=== PATIENT | male | born 1940 | race Caucasian/White ===

== ENCOUNTER → 2018-02-28 | Outpatient (CLI) | payer MEDICARE, BC ==
[~2018-02-28] MED LIST: ACCURETIC 20-11 EACH; ALLOPURINOL 30300 M2; ASPIRIN EC325 MG PO; ASPIRIN EC81 M1; CALCIUM 500 +1 EAC5; COLCHICINE0.6 M1 PO; COREG6.25 MG PO; COUMADIN 5 MG TA5 M1; FISH OIL 1,001000 M1 PO; FOSAMAX 70 MG T70 M1; LASIX 40 MG TAB40 M1 PO; LIPITOR40 MG PO; LISINOPRIL10 MG PO; METFORMIN HCL500 MG PO; MULTIVITAMINS1 EAC7 PO; NORCO 5-325 TA1 EACH PO; ODORLESS GARLI500 MG; PEPCID20 MG PO; PERCOCET PO; POTASSIUM20 PO; POTASSIUM99 M1; PRADAXA150 MG PO; PRADAXA75 MG PO; SAW PALMETTO 1160 MG PO; SAW PALMETTO C1 EACH PO; SAW PALMETTO160 M1; SORINE 80 MG TA80 M1 PO; SOTALOL80 MG PO; TOPROL XL50 MG; VITCB500GO
[2018-02-28 12:53] LABS: ABSOLUTE EOSINOPHILS 0.2 thou/uL (0.0-0.7); ABSOLUTE LYMPHOCYTES 1.4 thou/uL (0.8-5.3); ABSOLUTE NEUTROPHILS 4.8 thou/uL (1.6-8.1); BASOPHILS 0.6 %; EOSINOPHILS 2.5 %; HEMOGLOBIN 18.5 gm/dL (14.0-18.0); LYMPHOCYTES 19.2 %; MCH 32.1 pg (26.0-34.0); MCHC 33.6 g/dL (28.0-37.0); MCV 95.6 fL (80.0-100.0); MONOCYTES 13.4 %; MPV 10.8 fl. (7.2-11.1); NUCLEATED RBCS 0 /100WBC; PLATELET COUNT* 125 thou/uL (150-400); POLYS 64.3 %; RBC 5.75 mil/uL (4.50-6.00); RDW-CV 14.7 % (10.5-14.5); WBC 7.4 thou/uL (4.0-11.0)
[2018-02-28 13:09] LABS: ALBUMIN 3.1 g/dL (3.4-5.0); CALCIUM 8.5 mg/dL (8.5-10.1); CREATININE 1.1 mg/dL (0.6-1.3); POTASSIUM 4.5 mmol/L (3.5-5.1); TOTAL BILIRUBIN 1.1 mg/dL (<0.1-1.0); TOTAL PROTEIN 6.9 g/dL (6.4-8.2)
== END ==
LOC: M.RAD 12:18
PROVIDERS: Family Medicine
DX: I51.7 Cardiomegaly (principal); R09.02 Hypoxemia; Z95.0 Presence of cardiac pacemaker

== ENCOUNTER → 2018-10-10 | Outpatient (CLI) | payer MEDICARE, BC ==
[2018-10-10] VITALS (11 sets, daily range): BP systolic 146–184; BP diastolic 87–120
--- NOTE | 2018-10-10 16:56 | TEE ---
[place] [address] TRANSESOPHAGEAL ECHOCARDIOGRAM Name: EUGENE PERRY Room: [facility]#: [id number] Admission: 10/10/18 Attend Phys: Selwyn Brooks, Discharge: Date of : 38 Date of Service: 10/10/18 1656 Report #: [id number] THIS REPORT FOR: //name// APPROVED REPORT Study performed: 10/10/2018 14:36:48 EXAM: Transesophageal Echocardiogram Patient Location: Out-Patient Status: routine BSA: 2.26 HR: 77 bpm BP: 173/100 mmHg Rhythm: NSR Other Information Study Quality: Good Indications Pre-ablation Echo Enhancing Agent Indication: Rule out Shunt Agent(s) / Amount(s) Used: Agitated Saline 10 cc Procedure After obtaining informed consent, patient underwent transesophageal echo in the [employer]. Type of Sedation : Conscious Sedation Sedation was administered by Tatyana Mayer. Sedation start time: 2 Case end Time: 1457 Sedation was achieved intravenously with: Versed (5) Fentanyl (125) Transesophageal probe was inserted and advanced into esophagus without difficulty by Selwyn Brooks MD, FACC. Echo enhancement indication: R/O Septal defect. Echo enhancement agent administered: Agitated Saline The DELMA was performed without complications. Throughout the procedure, the blood pressure, pulse oximetry, cardiac rhythm, and rate were monitored. The patient tolerated the procedure without adverse effects. Recovery from conscious sedation was uneventful and vital signs were stable. Left Ventricle [address] [address] TRANSESOPHAGEAL ECHOCARDIOGRAM Name: EUGENE PERRY Room: [facility]#: [id number] Admission: 10/10/18 Attend Phys: Selwyn Brooks, Discharge: Date of : 38 Date of Service: 10/10/18 1656 Report #: [id number] The left ventricle is normal size. There is normal LV segmental wall motion. There is normal left ventricular wall thickness. Left ventricular systolic function is normal. LVEF is 50-55%. Right Ventricle The right ventricle is normal size. The right ventricular systolic function is normal. Atria No thrombus is visualized in the left atrium or appendage. PFO is noted. The right atrium size is normal. Aortic Valve The aortic valve is normal in structure. No aortic regurgitation is present. There is no aortic valvular stenosis. Mitral Valve The mitral valve is normal in structure. Mild mitral regurgitation. No evidence of mitral valve stenosis. Tricuspid Valve The tricuspid valve is normal in structure. Trace tricuspid regurgitation. Pulmonic Valve The pulmonary valve is normal in structure. There is no pulmonic valvular regurgitation. Great Vessels The aortic root is normal in size. Pericardium There is no pericardial effusion. <Conclusion> The left ventricle is normal size. There is normal left ventricular wall thickness. Left ventricular systolic function is normal. LVEF is 50-55%. PFO is noted. No thrombus is visualized in the left atrium or appendage. Mild mitral regurgitation. <ELECTRONICALLY SIGNED> By: Selwyn Brooks MD, FACC 10/10/18 1656 165 165 Selwyn Brooks MD, FACC /INF
== END | disposition home or self-care (01) ==
LOC: M.CL 13:43
DX: I34.0 Nonrheumatic mitral (valve) insufficiency (principal); N28.9 Disorder of kidney and ureter, unspecified; Z98.890 Other specified postprocedural states; Z87.19 Personal history of other diseases of the digestive system; Z91.041 Radiographic dye allergy status; Z79.899 Other long term (current) drug therapy; Z79.01 Long term (current) use of anticoagulants

== ENCOUNTER → 2018-10-17 | Outpatient (CLI) | payer MEDICARE, BC ==
[2018-10-17 09:51] LABS: HEMATOCRIT 56.5 % (42.0-52.0); HEMOGLOBIN 18.8 gm/dL (14.0-18.0); MCH 31.7 pg (26.0-34.0); MCHC 33.3 g/dL (28.0-37.0); MCV 95.3 fL (80.0-100.0); MPV 12.2 fl. (7.2-11.1); RBC 5.93 mil/uL (4.50-6.00); RDW-CV 14.6 % (10.5-14.5); WBC 10.8 thou/uL (4.0-11.0)
[2018-10-17 10:06] LABS: ALBUMIN 3.1 g/dL (3.4-5.0); CALCIUM 8.5 mg/dL (8.5-10.1); CREATININE 1.2 mg/dL (0.6-1.3); POTASSIUM 4.6 mmol/L (3.5-5.1); TOTAL BILIRUBIN 0.6 mg/dL (<0.1-1.0); TOTAL PROTEIN 7.1 g/dL (6.4-8.2)
== END ==
LOC: M.LAB
PROVIDERS: Internal Medicine Cardiovascular Disease
DX: I11.9 Hypertensive heart disease without heart failure (principal); I25.10 Atherosclerotic heart disease of native coronary artery without angina pectoris; I48.91 Unspecified atrial fibrillation; I49.9 Cardiac arrhythmia, unspecified; Z96.611 Presence of right artificial shoulder joint; Z96.612 Presence of left artificial shoulder joint

== ENCOUNTER → 2019-06-17 | Outpatient (CLI) | payer MEDICARE, BC ==
--- NOTE | 2019-06-17 13:34 | 2DMMODE ---
[place] [address] 2 D/M-MODE ECHOCARDIOGRAM Name: EUGENE PERRY Room: [facility]#: [id number] Admission: 06/17/19 Attend Phys: Selwyn Brooks, Discharge: Date of : 38 Date of Service: 06/17/19 1333 Report #: [id number] THIS REPORT FOR: cc: Tenisha Banuelos MD, Katrina MD Blick, David R. MD [facility] ~ THIS REPORT FOR: //name// APPROVED REPORT Study performed: 06/17/2019 11:10:50 EXAM: Comprehensive 2D, Doppler, and color-flow Echocardiogram Patient Location: Out-Patient BSA: 2.28 HR: 51 bpm BP: 146/90 mmHg Other Information Study Quality: Good Indications Dyspnea Cardiomyopathy 2D Dimensions IVSd: 13.31 (7-11mm) LVOT Diam: 20.10 (18-24mm) LVDd: 53.08 mm PWd: 10.73 (7-11mm) Ascending Ao: 34.15 (22-36mm) LVDs: 35.30 (25-40mm) Aortic Root: 31.59 mm Volumes Left Atrial Volume (Systole) LA ESV Index: 37.00 mL/m2 Aortic Valve AoV Peak Marlo.: 1.71 m/s AO Peak Gr.: 11.71 mmHg LVOT Max P.76 mmHg AO Mean Gr.: 7.29 mmHg LVOT Mean P.88 mmHg LVOT Max V: 0.66 m/s AO V2 VTI: 35.22 cm LVOT Mean V: 0.43 m/s GISELA (VTI): 1.16 cm2 LVOT V1 VTI: 12.86 [place] [id number] 2 D/M-MODE ECHOCARDIOGRAM Name: EUGENE PERRY Room: [facility]#: [id number] Admission: 06/17/19 Attend Phys: Selwyn Brooks, Discharge: Date of : 38 Date of Service: 06/17/19 1333 Report #: [id number] Mitral Valve E/A Ratio: 1.99 MV Decel. Time: 223.77 ms MV E Max Marlo.: 0.55 m/s MV PHT: 64.89 ms MVA (PHT): 3.39 cm2 TDI E/Lateral E': 6.88 E/Medial E': 13.75 Medial E' Marlo.: 0.04 m/s Lateral E' Marlo.: 0.08 m/s Pulmonary Valve PV Peak Marlo.: 1.05 m/s PV Peak Gr.: 4.42 mmHg Tricuspid Valve RAP Estimate: 5.00 mmHg TR Peak Gr.: 25.85 mmHg RVSP: 30.85 mmHg PA Pressure: 30.85 mmHg Left Ventricle The left ventricle is normal size. paradoxical septal motion consistent with a paced rhythm There is normal left ventricular wall thickness. Left ventricular systolic function is normal. The left ventricular ejection fraction is within the normal range. LVEF is 50-55%. This study is not technically sufficient to allow evaluation of the LV diastolic function due to atrial fibrillation. Right Ventricle The right ventricle is normal size. The right ventricular systolic function is normal. Pacemaker lead is present in the right ventricle. Atria Left atrium is mildly dilated. Pacemaker lead is present in the right atrium. Aortic Valve Aortic valve is mildly calcified. Trace aortic regurgitation. There is no aortic valvular stenosis. Mitral Valve The mitral valve is normal in structure. There is trace mitral valve regurgitation noted. No evidence of mitral valve stenosis[place] [id number] 2 D/M-MODE ECHOCARDIOGRAM Name: EUGENE PERRY Room: [facility]#: [id number] Admission: 06/17/19 Attend Phys: Selwyn Brooks, Discharge: Date of : 38 Date of Service: 06/17/19 1333 Report #: [id number] The tricuspid valve is normal in structure. trace tricuspid regurgitation. Pulmonic Valve The pulmonary valve is normal in structure. There is no pulmonic valvular regurgitation. Great Vessels The aortic root is normal in size. IVC is normal in size and collapses >50% with inspiration. Pericardium There is no pericardial effusion. <Conclusion> LVEF is 50-55%. Left atrium is mildly dilated. Aortic valve is mildly calcified. <ELECTRONICALLY SIGNED> By: Matt Shi MD, [facility] 06/17/19 1333 1333 1333 Matt Shi MD, FACC /INF
== END ==
LOC: M.CRD 11:00
DX: I35.8 Other nonrheumatic aortic valve disorders (principal); I42.8 Other cardiomyopathies; Z91.041 Radiographic dye allergy status

== ENCOUNTER → 2019-06-27 | Outpatient (CLI) | payer MEDICARE, BC | LOC: M.RAD 11:57 | DX: I51.7 Cardiomegaly (principal) ==

== ENCOUNTER → 2019-06-28 | Outpatient (CLI) | payer MEDICARE, BC ==
[2019-06-28 10:46] LABS: CALCIUM 8.3 mg/dL (8.5-10.1); CREATININE 0.9 mg/dL (0.6-1.3); POTASSIUM 4.9 mmol/L (3.5-5.1)
== END ==
LOC: M.LAB 09:44
PROVIDERS: Family Medicine
DX: E87.5 Hyperkalemia (principal)

== ENCOUNTER → 2019-07-21 | Outpatient (CLI) | payer MEDICARE, BC | LOC: M.RAD 15:39 | DX: J18.9 Pneumonia, unspecified organism (principal); J98.4 Other disorders of lung ==

== ENCOUNTER 2019-11-01 16:46 | Inpatient (IN) | payer MEDICARE, BC ==
[~2019-11-01] VITALS: Ht 177.8 cm; Wt 114.4 kg
[2019-11-01 17:00] VITALS: BP 164/96
[2019-11-01] MEDS ORDERED: KLOR-CON 10 ER10 MEQ PO (17:08)
[2019-11-01 17:10] LABS: ABSOLUTE BASOPHILS 0.1 thou/uL (0.0-0.2); ABSOLUTE EOSINOPHILS 0.2 thou/uL (0.0-0.7); ABSOLUTE LYMPHOCYTES 1.3 thou/uL (0.8-5.3); ABSOLUTE NEUTROPHILS 6.5 thou/uL (1.6-8.1); BASOPHILS 1.1 %; EOSINOPHILS 2.6 %; HEMATOCRIT 46.7 % (42.0-52.0); HEMOGLOBIN 15.8 gm/dL (14.0-18.0); LYMPHOCYTES 14.2 %; MCH 32.2 pg (26.0-34.0); MCHC 33.8 g/dL (28.0-37.0); MCV 95.5 fL (80.0-100.0); MONOCYTES 10.7 %; MPV 11.7 fl. (7.2-11.1); NUCLEATED RBCS 0 /100WBC; PLATELET COUNT* 126 thou/uL (150-400); POLYS 71.4 %; RBC 4.89 mil/uL (4.50-6.00); RDW-CV 15.1 % (10.5-14.5); WBC 9.2 thou/uL (4.0-11.0)
[2019-11-01 17:21] LABS: CALCIUM 8.8 mg/dL (8.5-10.1); CREATININE 1.1 mg/dL (0.6-1.3); POTASSIUM 4.7 mmol/L (3.5-5.1)
[2019-11-01 17:26] LABS: ALBUMIN 3.2 g/dL (3.4-5.0); TOTAL BILIRUBIN 0.9 mg/dL (<0.1-1.0); TOTAL PROTEIN 7.1 g/dL (6.4-8.2)
[2019-11-01 17:41] LABS: APTT 40.9 Seconds (25.0-31.3); INR 1.3
[2019-11-01 19:35] VITALS: BP 164/92
[2019-11-01 20:00] VITALS: BP 157/93
[2019-11-02] VITALS: BP 145/81
--- NOTE | 2019-11-02 02:46 | NUR ---
PT ALERT OREINTED. SLIGHT SLUR IN SPEECH. SLIGHT R SIDED FACIAL DROOP. PT HAS PACEMAKER. DR DIAZ CALLED TO CHECK ON PT. DR WANTED MRI BUT PT HAS PACEMAKER. ALSO DR REQUESTED NURSE TO CHECK FOR SWALLOW AND GIVE MEDS. [facility] BR[facility]. WILL NEED TO LABLE WITH PHARMACY IN THE AM. TELEMETRY SHOWS AV PACED. NIHSS 2. STATES SPEECH IS IMPROVING BUT SHE STILL NOTES SOME SLURRING. AMBULATE TO BR WITH ASSIST OF ONE. VOIDS IN BR. IVF NS AT 100MLS/HR. WILL CONTINUE TO [facility].
[2019-11-02 04:00] VITALS: BP 140/72
[2019-11-02 06:15] LABS: CHOLESTEROL 94 mg/dL (<200); HDL CHOLESTEROL 35 mg/dL (>40); LDL CHOLESTEROL 45 mg/dL (<100); TC:HDL 2.7 Ratio (Not establshd); TRIGLYCERIDE 71 mg/dL (<150); VLDL 14 mg/dL (<40)
--- NOTE | 2019-11-02 06:16 | NUR ---
DR DIAZ CALLED. HE WILL SEE PT AROUND NOON TODAY. BED REST FOR NOW. HOLD CARDIAC MEDS AND CHECK WITH PRIMARY RE SOTOLOL.
[2019-11-02 06:17] LABS: SERUM ASSESSMENT Clear
[2019-11-02 09:07] VITALS: BP 136/79
[2019-11-02 12:40] VITALS: BP 128/78
--- NOTE | 2019-11-02 12:44 | NUR ---
PT ALERT AND ORIENTED IN BED SBA WITH AMBULATION STILL LEANS TO LEFT, LEFT SIDED FACIAL DROOP NOTED MINIMALLY PACED ON THE MONITOR INFO ON PACEMAKER PUT IN CHART FROM DENIES ANY PAIN EATS WITHOUT DIFFICULTY HEART HEALTHY DIET PUT IN FOR LUNCH CALL LIGHT IN REACH
--- NOTE | 2019-11-02 13:28 | EKG ---
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
--- NOTE | 2019-11-02 13:45 | CON ---
[address] [address] CONSULTATION Name: EUGENE PERRY Room: [address] IN .R.#: [id number] Admission: 11/01/19 Attend Phys: Rasta Matthews MD Discharge: Date of : 38 Report #: [id number] THIS REPORT FOR: //name// cc: Tenisha Banuelos MD, Katrina MD ~ THIS REPORT FOR: //name// CC: Rasta Brooks MD DATE OF SERVICE: 11/02/2019 CARDIOLOGY CONSULTATION HISTORY OF PRESENT ILLNESS: The patient is a 78-year-old white male who I was asked to see in the hospital today because of his history of atrial fibrillation. The patient has an extensive and complicated past medical history. He has had paroxysmal atrial fibrillation since 2011. He has been cardioverted 3 times. He has been followed by my partner, Dr. Brooks. Because of symptomatic bradycardia, he actually had a pacemaker inserted in 2012. He has been chronically anticoagulated with Pradaxa. He has been on sotalol. Because of recurrent atrial fibrillation, he actually underwent radiofrequency ablation a year ago at [facility] by Dr. Jaramillo. Recently, he denied any palpitations or chest pain. He does get short of breath and exerts himself, has occasional edema, for which he takes Lasix. He apparently had a heart catheterization in the past showed no significant coronary artery disease. The patient was doing well until yesterday, he had some slurred speech, poor balance and visual changes. He was confused. He was brought to the Emergency Room last night, felt to have had a TIA. Cardiology consultation was requested. PAST MEDICAL HISTORY: He has had previous elbow surgery, splenectomy, mandible fracture, left shoulder replacement. MEDICATIONS: On admission include lisinopril, Lasix, colchicine, Pepcid, Lipitor, Pradaxa, sotalol, and carvedilol. ALLERGIES: HE HAS A PREVIOUS REACTION TO IV CONTRAST. FAMILY HISTORY: Negative for heart disease. SOCIAL HISTORY: He is . He and his live here in [place]. No tobacco use. Rarely drinks alcohol. REVIEW OF SYSTEMS: He has had no history of previous stroke, asthma, [place] [address] CONSULTATION Name: EUGENE PERRY Room: [address]#: [id number] Admission: 11/01/19 Attend Phys: Rasta Matthews MD Discharge: Date of : 38 Report #: [id number] history of hiatal hernia. No liver disease, no kidney disease, no cancer, no chronic skin condition. PHYSICAL EXAMINATION: GENERAL: Revealed an elderly male, lying in bed, appeared in no distress. VITAL SIGNS: He had a blood pressure of 130/80, pulse 60. He is afebrile. HEENT: He is anicteric. Conjunctivae pink. Mucous membranes moist. NECK: Veins nondistended. No carotid bruits. CHEST: Clear to auscultation. CARDIOVASCULAR: Regular rate and rhythm. ABDOMEN: Soft. EXTREMITIES: Had no edema. Dorsalis pedis pulse cannot be palpated. SKIN: Cool and dry. NEUROLOGIC: Nonfocal. DIAGNOSTIC DATA: ECG shows an AV sequentially paced rhythm. His workup, he had an echocardiogram done in 06/2019 that showed an ejection fraction 55%, left atrial enlargement, mild aortic sclerosis. Workup last night, he had a CT scan of the head performed without contrast that showed atrophy, small vessel disease. Chest x-ray showed normal heart size, clear lung winslow. LABORATORY WORK: Sodium 143, creatinine 1.1. Cholesterol 94, triglycerides 71, HDL 35, LDL 45. His white blood cell count was 9.2, hemoglobin 15.8. IMPRESSION AND RECOMMENDATIONS: 1. Transient ischemic attack. Reason unclear. The patient has been on Pradaxa. I would ask Neurology if the patient should be started on aspirin or dipyridamole. 2. History of atrial fibrillation. The patient is on sotalol. 3. Sick sinus syndrome. The patient ventricular paced. 4. Hypertension. The patient is on a beta zakiya and ANDRA inhibitor. 5. PREVIOUS REACTION TO CONTRAST. <ELECTRONICALLY SIGNED> By: Matt Shi MD, FACC 11/02/19 1345 1306 1333Dphil Shi MD, FACC /nt
[2019-11-02 16:30] VITALS: BP 132/78
--- NOTE | 2019-11-02 18:24 | NUR ---
PT STILL LEANS TO THE LEFT WHEN AMBULATING WITH SOME SHUFFLING, STANDBY ASSIST
[2019-11-02 20:00] VITALS: BP 128/82
[2019-11-03 00:11] VITALS: BP 118/58
--- NOTE | 2019-11-03 02:13 | NUR ---
PT ALERT ORIENTED. NIHSS 2. TELEMTRY SHOWS A-PACED AV-PACED WITH AFIB UNDERLYING. UP WITH ASSIST OF ONE. NO PAIN. WILL CONTINUE TO [facility].
[2019-11-03 04:00] VITALS: BP 154/79
[2019-11-03 08:00] VITALS: BP 154/81
--- NOTE | 2019-11-03 10:22 | NUR ---
PT UP WITH MIN ASSIST LEANS TO LEFT STILL AND BECOMES UNSTEADY MINIMAL WEAKNESS TO LEFT HEALTH PROFESSIONAL PACEMAKER NOT COMPATIBLE WITH MRI SO POSSIBLE CTA TODAY PROTOCOL FOR IODINE ALLERGY PT STATES IT WAS ONE TIME HGB A1C AT 6.0 CALL LIGHT IN REACH
[2019-11-03 11:30] VITALS: BP 156/86
[2019-11-03] MEDS ORDERED: ASA81BEC PO (13:22)
--- NOTE | 2019-11-03 13:42 | 2DMMODE ---
[place] [address] 2 D/M-MODE ECHOCARDIOGRAM Name: EUGENE PERRY Room: [address] IN .R.#: [id number] Admission: 11/01/19 Attend Phys: Rasta Matthews, Discharge: Date of : 38 Date of Service: 11/03/19 1341 Report #: [id number] THIS REPORT FOR: cc: Tenisha Banuelos MD, Katrina MD Holkins,Fabien Connors MD [facility] ~ APPROVED REPORT Study performed: 11/03/2019 10:02:41 EXAM: Comprehensive 2D, Doppler, and color-flow Echocardiogram Patient Location: In-Patient BSA: 2.24 HR: 64 bpm BP: 154/81 mmHg Other Information Study Quality: Fair Indications CVA/TIA Echo Enhancing Agent Indication: Rule out Shunt Agent(s) / Amount(s) Used: Agitated Saline cc 2D Dimensions IVSd: 15.00 (7-11mm) LVOT Diam: 22.37 (18-24mm) LVDd: 57.36 mm PWd: 9.87 (7-11mm) Ascending Ao: 31.66 (22-36mm) LVDs: 37.62 (25-40mm) Aortic Root: 26.44 mm Volumes Left Atrial Volume (Systole) LA ESV Index: 41.80 mL/m2 Aortic Valve AoV Peak Marlo.: 1.10 m/s AO Peak Gr.: 4.84 mmHg LVOT Max P.31 mmHg AO Mean Gr.: 2.86 mmHg LVOT Mean P.79 mmHg LVOT Max V: 0.91 m/s AO V2 VTI: 19.79 cm LVOT Mean V: 0.63 m/[place] [address] 2 D/M-MODE ECHOCARDIOGRAM Name: EUGENE PERRY Room: [address] IN ..#: [id number] Admission: 11/01/19 Attend Phys: Rasta Matthews, Discharge: Date of : 38 Date of Service: 11/03/19 1341 Report #: [id number] GISELA (VTI): 4.06 cm2 LVOT V1 VTI: 20.46 cm Mitral Valve E/A Ratio: 1.95 MV Decel. Time: 158.47 ms MV E Max Marlo.: 0.62 m/s MV PHT: 45.96 ms MVA (PHT): 4.79 cm2 TDI E/Lateral E': 5.64 E/Medial E': 6.89 Medial E' Marlo.: 0.09 m/s Lateral E' Marlo.: 0.11 m/s Pulmonary Valve PV Peak Marlo.: 0.96 m/s PV Peak Gr.: 3.66 mmHg Tricuspid Valve RAP Estimate: 5.00 mmHg TR Peak Gr.: 33.28 mmHg RVSP: 38.28 mmHg Left Ventricle The left ventricle is normal size. There is normal LV segmental wall motion. There is normal left ventricular wall thickness. Left ventricular systolic function is mildly decreased. LVEF is 45%. Right Ventricle The right ventricle is normal size. The right ventricular systolic function is normal. Pacemaker lead is present in the right ventricle. Atria Left atrium is mildly dilated. Injection of bubbles documented no interatrial shunt. The right atrium size is normal. Aortic Valve Mild aortic valve sclerosis. No aortic regurgitation is present. There is no aortic valvular stenosis. Mitral Valve The mitral valve is normal in structure. Trace mitral regurgitation. No evidence of mitral valve stenosis. Tricuspid Valve The tricuspid valve is normal in structure. [place] [address] 2 D/M-MODE ECHOCARDIOGRAM Name: EUGENE PERRY Room: [address]#: [id number] Admission: 11/01/19 Attend Phys: Rasta Matthews, Discharge: Date of : 38 Date of Service: 11/03/19 1341 Report #: [id number] Pulmonic Valve The pulmonary valve is normal in structure. There is no pulmonic valvular regurgitation. Great Vessels The aortic root is normal in size. IVC is normal in size and collapses >50% with inspiration. Pericardium There is no pericardial effusion. <Conclusion> The left ventricle is normal size. There is normal left ventricular wall thickness. Left ventricular systolic function is mildly decreased. LVEF is 45%. The right ventricle is normal size. Left atrium is mildly dilated. Mild aortic valve sclerosis. No aortic regurgitation is present. There is no aortic valvular stenosis. The mitral valve is normal in structure. The tricuspid valve is normal in structure. IVC is normal in size and collapses >50% with inspiration. There is no pericardial effusion. There is normal LV segmental wall motion. Pacemaker lead is present in the right ventricle. Injection of bubbles documented no interatrial shunt. <ELECTRONICALLY SIGNED> By: Fabien Bejarano MD, FACC 11/03/19 1341 1341 1341 Fabien Bejarano MD, FACC /INF
[2019-11-03 13:56] VITALS: BP 154/81
--- NOTE | 2019-11-03 14:00 | NUR ---
PT.TO DISCHARGE TODAY,WITH HOME HEALTH. SPOKE WITH HIM IN ROOM. HE SAID HE LIVES WITH HIS . NO USE OF DME. HE WAS AGREEABLE TO HOME HEALTH. HE WANTED CM TO CALL HIS FOR HOME HEALTH AGENCY DISCUSSION. CM CALLED ,[facility]. SHE CHOSE [facility], THEY USED THEM BEFORE WHEN PT.HAD JT REPLACEMENTS. FAXED REFERRAL INFORMATION AND DISCHARGE SUMMARY TO [facility] [phone], THEY WILL CALL PT.TOMORROW TO SET UP APPTS. INFORMATION PUT IN DISCHARGE INSTRUCTIONS.
--- NOTE | 2019-11-03 15:28 | NUR ---
Cardiac Rehab Stroke Education completed with receptive patient using the [facility] Patient Education Folder. Education included signs and symptoms of stroke, when to call 911, personal risk factor reduction, BEFAST. States understanding of education.
[2019-11-03] MEDS ORDERED: COREG6.25 MG PO (16:36)
[2019-11-03] MEDS ORDERED: LISINOPRIL10 MG PO (16:36)
[2019-11-03] MEDS ORDERED: PLAVIX 75 MG TA75 MG PO (16:36)
--- NOTE | 2019-11-05 12:39 | CON ---
[address] [address] CONSULTATION Name: EUGENE PERRY Room: [address] IN .R.#: [id number] Admission: 11/01/19 Attend Phys: Rasta Matthews MD Discharge: 11/03/19 Date of : 38 Report #: [id number] THIS REPORT FOR: //name// cc: Tenisha Banuelos MD, Katrina MD THIS REPORT FOR: //name// CC: Rasta Samano Cecilia DATE OF SERVICE: 11/02/2019 HISTORY OF PRESENT ILLNESS: This is a 78-year-old male patient on whom a routine Neurology consultation was requested to evaluate the patient for possibility of CVA. I talked to the nurses and I talked to Dr. Matthews I reviewed the records. The patient himself is able to provide reasonably good history. He indicated that he worked for about 4 hours in heat. He was moaning during that time, but he indicated such heat exposure is not unusual for him. He does it all the time. Then, he drove and did not feel good while driving. He was leaning towards the left side. There was a facial drop noticed also by his sons. He was going to drive to his place, which was about 60 miles away, but stopped by his son's house because he was not feeling good. He was brought to Emergency Room by the family and those notes were reviewed. It looks like in the Emergency Room, they did a CT scan of the head, which showed no acute changes. The patient has significantly improved since that time. does not think that his speech is back to completely normal, but she says he does improve more than 80%. To me, it looks like he is talking fine. He had some nonspecific visual symptoms. Those have also resolved. REVIEW OF SYSTEMS: Indicate that the patient had multiple musculoskeletal problems in the past. He had trouble with the shoulders. He has a pacemaker, which according to the family was put in 2012. It is not sure whether it is MRI compatible or not. He also had a heart ablation as I understand. He does have a history of prior vertigo. His visual symptoms have resolved and he does not have any new ENT, cardiac, respiratory, GI, , musculoskeletal, constitutional, hematological, psychiatric, throat, allergic symptom associated with this symptom. He has a pretty profound redness of his legs and multiple other spots in the body. He says it is sunburn and he gets pretty off. PAST MEDICAL HISTORY: Negative for stroke. FAMILY HISTORY: Negative for any early age stroke. SOCIAL HISTORY: The patient is and his was here and I talked to the patient's in detail also and [place] [address] CONSULTATION Name: EUGENE PERRY Room: [address]#: [id number] Admission: 11/01/19 Attend Phys: Rasta Matthews MD Discharge: 11/03/19 Date of : 38 Report #: [id number] apparently does not smoke. PHYSICAL EXAMINATION: Indicate he is alert, responsive, able to follow simple and complex command. He knows what month it is, what day it is, who the president is. He does not appear to have any expressive aphasia. His cranial nerve examination 2-12 does not appear to be showing any definite abnormality. To me, I do not see much facial problem. The best I can tell, although I agree that there is some facial asymmetry, but it is subtle if it is there. He does not have any hemianopsia or nystagmus. His mobility especially in the shoulder is limited, but he says that is his baseline. His position sense is unremarkable. His tone and reflexes are also unremarkable. He has a pacemaker. He has no respiratory difficulty. He is a very well-developed individual, who does not have any dysmorphic features of eyes, ears and face. His pulses are somewhat difficult to feel. He has no thyroid mass, no carotid bruit. Hearing and vision looks adequate. His blood pressure now is running about 136/79, respirations 16, pulse is 62 and temperature is 96.5. LABORATORY DATA: His WBC count is 9.2 and his platelet count is low at 126. His PT and PTT is somewhat on the higher side for some reason, his fibrinogen level is high. IMPRESSION AND PLAN: The patient's clinical presentation is consistent with possible CVA. The differential does include that it is possible that the patient had a heat exposure causing heat stroke, but he is accustomed to this heat and that is considered unlikely. At this time, we will assume that he probably had a stroke. His workup is difficult. We could not do MRI in this patient because we do not know whether the pacemaker is compatible or not and even if it is, then we need to set it off, which takes a few days to set up. MRI of the brain, MRA of the head and neck is the thing to do in this patient. The other option is getting a CT angiogram of the head done in this patient. 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 He received dye about 40 years ago. He broke into a severe rash and then passed out. That makes it difficult because second time the allergic reaction is more severe. I believe we can probably do the CT angio if we pretreat him, but the problem with that it is not 100% and it can cause multiple other issues. I discussed all of it with the patient and I discussed his options and these are the option in this patient. This patient is not a TPA candidate and he never was because he is on anticoagulation with Pradaxa. It is difficult to tell about any thrombus in the carotid or intracranial circulation. This is because further workup cannot be done and his NIH score is too low at the moment because to me, he basically has very mild symptoms. Therefore, it is unlikely that he will be any thrombectomy candidate even if the thrombus is found, but that was required multiple testing, which has potential complication. All other option is to just watch and see how [place] [address] CONSULTATION Name: EUGENE PERRY Room: [address] IN [facility].#: [id number] Admission: 11/01/19 Attend Phys: Rasta Matthews MD Discharge: 11/03/19 Date of : 38 Report #: [id number] aspirin and anticoagulation. Best option patient and the family wants to follow. I will suggest a Cardiology consult. We will ask them if the pacemaker is compatible with MRI. I will also like to lower his antihypertensive in acute stage if that is okay with Cardiology. I will keep getting his fluids because that will keep him hydrated and increase his blood pressure to some extent. This patient may need a DELMA also. I will favor that especially to look for any embolization from aorta. The first thing is that the patient is stable at the moment and his deficit is mild and the best will be tried to see if an MRI can be done and we will ask Cardiology evaluation and he also need other cardiology workup as summarized above. We will keep him hydrated and keep him on combination of anticoagulation and aspirin. His speech is pretty much back to normal and I suggested that they do a bedside swallow and if he passes that he can eat from Neurology perspective because that is what he wants to do. There is no ideal option in this patient. Every option has pros and cons because of the complicated situation summarized above. I have discussed that all of that in detail with the patient and the family and they want to wait until the Cardiology evaluation and they like an MRI and MRA if possible at all rather than doing CT angio. I will get a carotid Doppler done in this patient. Thank you very much for this referral. <ELECTRONICALLY SIGNED> By: Wesly Hill MD 11/05/19 1239 1214 1317Wesly Hill MD /nt
== END 2019-11-03 17:05 | disposition home health service (06) | DRG 65 ==
LOC: M.ERS 16:46 → M.TBA-ER 18:08 → M.2W 18:08
PROVIDERS: Family Medicine; ADMIT Internal Medicine; ATTEND Internal Medicine
DX: I63.89 Other cerebral infarction (principal); I50.22 Chronic systolic (congestive) heart failure; I42.9 Cardiomyopathy, unspecified; G81.94 Hemiplegia, unspecified affecting left nondominant side; Z96.652 Presence of left artificial knee joint; Z96.612 Presence of left artificial shoulder joint; M10.9 Gout, unspecified; I48.0 Paroxysmal atrial fibrillation; I49.5 Sick sinus syndrome; M19.90 Unspecified osteoarthritis, unspecified site; I11.0 Hypertensive heart disease with heart failure; Z95.0 Presence of cardiac pacemaker; Z87.01 Personal history of pneumonia (recurrent); Z91.048 Other nonmedicinal substance allergy status; Z79.899 Other long term (current) drug therapy; Z91.041 Radiographic dye allergy status; Z90.81 Acquired absence of spleen; R29.810 Facial weakness

== ENCOUNTER 2020-06-07 18:13 | Emergency (ER) | payer MEDICARE, BC ==
[~2020-06-07] VITALS: Ht 177.8 cm; Wt 108.9 kg
[~2020-06-07 18:13] MED LIST changes: +ASA81BEC PO; +KLOR-CON 10 ER10 MEQ PO; +PLAVIX 75 MG TA75 MG PO
[2020-06-07] MEDS ORDERED: SOTALOL160 MG PO (18:29)
[2020-06-07] MEDS ORDERED: LIPITOR40 MG PO (18:30)
[2020-06-07] MEDS ORDERED: COZAAR 25 MG TA25 M2 PO (18:30)
[2020-06-07] MEDS ORDERED: LASIX 40 MG TAB40 MG PO (18:30)
[2020-06-07] MEDS ORDERED: MITIGARE0.6 MG PO (18:31)
[2020-06-07] MEDS ORDERED: PEPCID20 MG PO (18:31)
[2020-06-07] MEDS ORDERED: KLOR-CON 10 ER10 MEQ PO (18:31)
[2020-06-07] MEDS ORDERED: FISH OIL 1,0001 EAC9 PO (18:32)
[2020-06-07 18:51] LABS: ABSOLUTE EOSINOPHILS 0.3 thou/uL (0.0-0.7); ABSOLUTE LYMPHOCYTES 1.5 thou/uL (0.8-5.3); ABSOLUTE MONOCYTES 0.7 thou/uL (0.0-1.2); ABSOLUTE NEUTROPHILS 3.1 thou/uL (1.6-8.1); BASOPHILS 0.9 %; EOSINOPHILS 5.5 %; HEMATOCRIT 43.8 % (42.0-52.0); HEMOGLOBIN 14.5 gm/dL (14.0-18.0); LYMPHOCYTES 26.9 %; MCH 31.2 pg (26.0-34.0); MCV 94.4 fL (80.0-100.0); MONOCYTES 11.6 %; MPV 10.4 fl. (7.2-11.1); NUCLEATED RBCS 0 /100WBC; PLATELET COUNT* 150 thou/uL (150-400); POLYS 55.1 %; RBC 4.64 mil/uL (4.50-6.00); RDW-CV 14.6 % (10.5-14.5); WBC 5.6 thou/uL (4.0-11.0)
[2020-06-07 19:03] LABS: APTT 34.6 Seconds (25.0-31.3); INR 1.1; PROTIME 11.6 Seconds (9.20-11.50)
[2020-06-07 20:20] VITALS: BP 139/88
== END 2020-06-07 20:20 | disposition home or self-care (01) ==
LOC: M.ERS 18:13
PROVIDERS: Nurse Practitioner Psychiatric/Mental Health
DX: R04.0 Epistaxis (principal); I48.91 Unspecified atrial fibrillation; Z87.01 Personal history of pneumonia (recurrent); Z96.652 Presence of left artificial knee joint; Z96.612 Presence of left artificial shoulder joint; Z91.041 Radiographic dye allergy status

== ENCOUNTER → 2020-12-08 | Outpatient (CLI) | payer MEDICARE, BC ==
[~2020-12-08] MED LIST changes: +COZAAR 25 MG TA25 M2 PO; +FISH OIL 1,0001 EAC9 PO; +LASIX 40 MG TAB40 MG PO; +MITIGARE0.6 MG PO; +SOTALOL160 MG PO
== END ==
LOC: M.RAD 11:33
PROVIDERS: ATTEND Internal Medicine Cardiovascular Disease
DX: J92.9 Pleural plaque without asbestos (principal); M47.814 Spondylosis without myelopathy or radiculopathy, thoracic region

== ENCOUNTER → 2020-12-23 | Outpatient (CLI) | payer MEDICARE, BC ==
[2020-12-23 12:40] VITALS: BP 128/81
--- NOTE | 2020-12-23 13:18 | EKG ---
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1940 Requested By: Selwyn Brooks Order Number: [id number] Ryan MD: Matt Shi Measurements Intervals [place] Rate: 73 P: 88 MA: 145 QRS: -60 QRSD: 191 T: 100 QT: 457 QTc: 504 Interpretive Statements atrial sensed and ventriuclar paced rhythm Compared to ECG 11/01/2019 17:30:06 atrial-paced complex(es) or rhythm no longer present Electronically Signed On 12-23-2020 13:18:20 CDT by Matt Shi [email or web address] <ELECTRONICALLY SIGNED> By: Matt Shi MD, [facility] 12/23/20 1318 1217 1217 Matt Shi MD, [facility] /EPI
--- NOTE | 2020-12-23 14:34 | NUR ---
PATIENT WAS CONVERTED TO SINUS RHYTHM WHEN WE HOOKED HIM TO THE MONITOR. TO CONFIRM IT WE DID EKG AND IT SHOWED SINUS RHYTHM AND WE INFORMED DR. CASTILLO ABOUT IT. CAME TO SEE EKG AND CARDIOVERSION WAS CANCELLED AND PATIENT WAS SENT HOME.
== END | disposition home or self-care (01) ==
LOC: M.CL 11:44
PROVIDERS: ATTEND Internal Medicine Cardiovascular Disease
DX: I48.91 Unspecified atrial fibrillation (principal); Z53.8 Procedure and treatment not carried out for other reasons